=== PATIENT | female | born 1940 | race Caucasian/White ===

== ENCOUNTER 2021-07-01 10:00 | Emergency (ER) | payer MEDICARE, SELFPAY ==
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
[2021-07-01 10:30] VITALS: BP 152/74; PULSE 82; RESP 16; TEMP 37; O2SAT 100
== END 2021-07-01 10:42 | disposition home or self-care (01) ==
LOC: EXPTROY 10:16
PROVIDERS: Emergency Provider Nurse Practitioner
DX: S01.01XD Laceration without foreign body of scalp, subsequent encounter (principal); X58.XXXD Exposure to other specified factors, subsequent encounter
CPT/HCPCS: 99211; G0463

== ENCOUNTER 2022-10-19 11:21 | Outpatient (CLI) | payer OTHER, SELFPAY ==
[2022-10-19 12:20] LABS: INR 1.4; Prothrombin Time 16.9 Seconds (11.1-14.7)
[2022-10-19 12:21] LABS: Partial Thromboplastin Time 27.7 SECONDS (22.3-36.8)
[2022-10-19 12:24] LABS: Anion Gap 3 mmol/L (8-16); Blood Urea Nitrogen 42 mg/dL (7-17); Calcium 8.8 mg/dL (8.4-10.2); Carbon Dioxide 31 mmol/L (22-30); Chloride 103 mmol/L (98-107); Estimated Glomerular Filt Rate 25; Glucose 102 mg/dL (65-110); Potassium 4.9 mmol/L (3.4-5.0); Sodium 137 mmol/L (137-145)
== END 2022-10-19 11:22 | disposition home or self-care (01) ==
PROVIDERS: Anesthesiology; PCP Hospitalist; Visit Provider Dentist
DX: N19 Unspecified kidney failure (principal); Z01.818 Encounter for other preprocedural examination
CPT/HCPCS: 36415; 80048; 85610; 85730

== ENCOUNTER 2022-10-21 02:36 | Day surgery (SDC) | payer OTHER, SELFPAY ==
[2022-10-14 11:14] VITALS: BMI 24.8
--- NOTE | 2022-10-14 12:02 | PC.NURSE ---
PRE-OP INSTRUCTIONS, PLEASE READ CAREFULLY Report to the Outpatient Waiting Room, entrance under the green pavilion located off [facility], at time _0900_ on date _10/21/22_. Planned Procedure Time: _1100_. Time changes happen often and if your time is changed the preop area will call you the afternoon before. - You and your visitor will be asked to self-screen and do not enter if you have any COVID symptoms. - Only one visitor is requested with a max of two and NO children visitors are allowed at this time. - The patient visitor may be requested to leave or wait in car when not with patient due to distancing restrictions. - A mask is optional within the hospital at this time. Patients may have clear liquids (water, carbonated beverages, clear teas, apple juice) until 3 hours prior to surgery (0800 AM) with a maximum of 20 ounces. - No food from midnight until time of surgery Take the following medications with a SIP of water the morning of surgery: _AMLODIPINE, MULTAQ, ISOSORBIDE, METOPROLOL, & PAIN PILL, NITROGLYCERIN IF NEEDED_ DO NOT STOP ANY OF YOUR OTHER PRESCRIPTION MEDICATIONS PRIOR TO SURGERY ?EXCEPT THE FOLLOWING Medications to discontinue per DR. MATHUR - _PATIENT STATES INSTRUCTED TO STAY OF ASPIRIN & XARELTO_ Medications to discontinue per ANESTHESIA - _OCUVITE 3 DAYS PRIOR TO SURGERY, Date to take last dose 10/17/22_ Please no make-up, nail [facility]en[facility], hairspray, perfume, deodorant, or body powder the day of surgery. No jewelry (including any body piercings) or valuables the day of surgery, leave them at home. Please take a shower or bath the night before, or the morning of, surgery with an antibacterial soap. Wear comfortable, loose fitting clothing. - Jewelry must be removed prior to entering the operating room. Rings and piercings that are not removed may be cut off. - The hospital will not accept responsibility for valuables. - Please leave all valuables, including medications, at home the day of surgery. If you are going home after surgery, a licensed emergency vehicle driver must drive you home. - NO public transportation without another adult if you receive anesthesia. - We recommend that an adult stay with you for 24 hours following discharge. - We also recommend that you do not drive, make important decision, drink alcoholic beverages, or take any drugs that were not prescribed by your health care provider for at least 24 hours after your discharge time. Follow any additional instructions given to you from your surgeon. If you or anyone in your household have experienced Covid symptoms in the past week, please notify your surgeon or the nurse liaison at the phone number below for possible testing. Telephone instructions given to _PATIENT_and asked if any additional questions and then verbalized understanding. Patient advised to call surgeon office or pre surgery nurse liaison [phone] if any additional questions.
--- NOTE | 2022-10-21 08:13 | WPDANESEPPF ---
Anes - Initial Pre Proc Eval Procedure: Operation Date: 10/21/22 11:00 Proposed Procedures p Extraction of One Tooth #1 - Pablo Evans DMD Date/Time: 10/21/22 08:13 Surgeon: Pablo Evans DMD Pre Op Diagnosis: dental carries Patient Data Age: 82 Gender: F Height: 1.6 m Weight: 63.63 kg Allergies Allergy/AdvReac Type Severity Reaction Status Date / Time No Known Allergies Allergy Verified 10/21/22 10:49 Home Medications Medication Instructions Recorded Confirmed Type atorvastatin 20 mg tablet 20 mg PO DAILY 07/01/21 10/14/22 History dronedarone 400 mg tablet (Multaq) 400 mg PO BID 07/01/21 10/14/22 History metoprolol succinate 50 mg 50 mg PO DAILY 07/01/21 10/14/22 History tablet,extended release 24 hr nitroglycerin 0.4 mg sublingual 0.4 mg sublingual PRN PRN Chest 07/01/21 10/14/22 History tablet Pain omeprazole 20 mg capsule,delayed 20 mg PO DAILY 07/01/21 10/14/22 History release amlodipine 5 mg tablet 5 mg PO QAM 10/14/22 10/14/22 History aspirin 81 mg capsule 81 mg PO HS 10/14/22 10/14/22 History docusate sodium 100 mg capsule 240 mg PO DAILY 10/14/22 10/14/22 History (Colace) doxazosin 4 mg tablet (Cardura) 4 mg PO HS 10/14/22 10/14/22 History hydrocodone 10 mg-acetaminophen 1 tablet PO Q6H PRN Pain 10/14/22 10/14/22 History 325 mg tablet isosorbide mononitrate 30 mg 30 mg PO QAM 10/14/22 10/14/22 History tablet,extended release 24 hr magnesium oxide 400 mg PO QAM 10/14/22 10/14/22 History rivaroxaban 15 mg tablet 15 mg PO QPM 10/14/22 10/14/22 History valsartan 40 mg tablet 40 mg PO HS 10/14/22 10/14/22 History vitamin A-vitamin C-vit E-min 1 tablet PO DAILY 10/14/22 10/14/22 History tablet Patient hx anesthesia problems: none Family hx anesthesia problems: none Results Review: All pre-operative results and documents have been reviewed as part of the pre-operative evaluation. [facility] Past Medical History Medical History (Updated 10/21/22 @ 09:23 by Pablo Evans DMD) Atrial fibrillation CKD (chronic kidney disease) DVT (deep venous thrombosis) GERD (gastroesophageal reflux disease) Hyperlipidemia Hypertension Rheumatoid arthritis Surgical History Surgical History (Updated 10/21/22 @ 08:17 by Jean Snyder DO) History of femoropopliteal bypass Family History Family History (Updated 07/01/21 @ 10:12 by AIXA Montes) Other Family history non-contributory Social History Social History Smoking status: Never smoker Second hand tobacco smoke exposure: No Alcohol intake: never Substance use: never Substance use type: does not use Living arrangements: with family Spiritual care concerns: No Anes - Eval Final PreProcedure Day of Procedure 10/21/22 08:13 Patient weight: normal Heart: regular rate and rhythm Lungs: clear to auscultation and normal air movement Airway: Mallampati scale class II Neurological: alert and oriented Last oral intake: >/= 8 hours ASA classification: IV Emergent: no Anesthetic plan: proceed Anesthesia type and monitoring: general ETT and standard monitoring Results Review: All pre-operative results and documents have been reviewed as part of the pre-operative evaluation. Informed Consent: The patient's anesthetic plan and its attendant risks and benefits were discussed with the patient/family/POA. Questions were solicited and answers provided to the satisfaction of the patient/family/POA.
--- NOTE | 2022-10-21 09:22 | WPDHPUPDATE1 ---
History and Physical Update Update Date/Time: 10/21/22 09:22 History and Physical has been reviewed, including an updated exam of the patient. There are NO changes in the patient's condition. Risks, benefits, and alternatives have been discussed and questions answered. Patient agrees to proceed with procedure.
--- NOTE | 2022-10-21 09:22 | PM.IMHP ---
H&P: HPI History of Present Illness Date/Time: 10/21/22 09:22 Chief Complaint: bad tooth PMFSH Past Medical History Medical History (Updated 10/21/22 @ 09:23 by Pablo Evans DMD) Atrial fibrillation CKD (chronic kidney disease) DVT (deep venous thrombosis) GERD (gastroesophageal reflux disease) Hyperlipidemia Hypertension Rheumatoid arthritis Surgical History Surgical History (Updated 10/21/22 @ 08:17 by Jean Snyder DO) History of femoropopliteal bypass Family History Family History (Updated 07/01/21 @ 10:12 by AIXA Montes) Other Family history non-contributory Social History Social History Smoking status: Never smoker Second hand tobacco smoke exposure: No Alcohol intake: never Substance use: never Substance use type: does not use Living arrangements: with family Spiritual care concerns: No Meds Home Medications and Allergies Home Medications Medication Instructions Recorded Confirmed Type atorvastatin 20 mg tablet 20 mg PO DAILY 07/01/21 10/14/22 History dronedarone 400 mg tablet (Multaq) 400 mg PO BID 07/01/21 10/14/22 History metoprolol succinate 50 mg 50 mg PO DAILY 07/01/21 10/14/22 History tablet,extended release 24 hr nitroglycerin 0.4 mg sublingual 0.4 mg sublingual PRN PRN Chest 07/01/21 10/14/22 History tablet Pain omeprazole 20 mg capsule,delayed 20 mg PO DAILY 07/01/21 10/14/22 History release amlodipine 5 mg tablet 5 mg PO QAM 10/14/22 10/14/22 History aspirin 81 mg capsule 81 mg PO HS 10/14/22 10/14/22 History docusate sodium 100 mg capsule 240 mg PO DAILY 10/14/22 10/14/22 History (Colace) doxazosin 4 mg tablet (Cardura) 4 mg PO HS 10/14/22 10/14/22 History hydrocodone 10 mg-acetaminophen 1 tablet PO Q6H PRN Pain 10/14/22 10/14/22 History 325 mg tablet isosorbide mononitrate 30 mg 30 mg PO QAM 10/14/22 10/14/22 History tablet,extended release 24 hr magnesium oxide 400 mg PO QAM 10/14/22 10/14/22 History rivaroxaban 15 mg tablet 15 mg PO QPM 10/14/22 10/14/22 History valsartan 40 mg tablet 40 mg PO HS 10/14/22 10/14/22 History vitamin A-vitamin C-vit E-min 1 tablet PO DAILY 10/14/22 10/14/22 History tablet Allergies Allergy/AdvReac Type Severity Reaction Status Date / Time No Known Allergies Allergy Verified 10/14/22 11:02 Assessment and Plan Assessment and plan (1) Non-restorable tooth: Code(s): K08.89 - Other specified disorders of teeth and supporting structures Status: Acute Assessment and Plan: ext #1
[2022-10-21] MEDS: LACTATED RINGERS 1,000 ML 30 ML IV CONT (10:30)
[2022-10-21 10:45] VITALS: BP 118/53; PULSE 72; RESP 16; TEMP 36.4; O2SAT 95
[2022-10-21 10:49] LABS: INR 1.5; Partial Thromboplastin Time 27.5 SECONDS (22.3-36.8); Prothrombin Time 17.3 Seconds (11.1-14.7)
--- NOTE | 2022-10-21 10:58 | SUR.PREOP ---
PT KAREEN AWARE OF PT/INR RESULTS DONE TODAY. NNO
[2022-10-21] MEDS: ceFAZolin 2 GM/D5W 50 ML 2 GM/50 ML BAG IVPB (11:44)
[2022-10-21] MEDS: LIDOCAINE 2%-EPI (FOR DENTAL BLOCK) 1.7 ML CARTRIDGE INFILTRATE (11:47)
--- NOTE | 2022-10-21 11:57 | W.PM.PROC2 ---
Procedure Note - Detailed Date of Procedure 10/21/22 Pre-op Diagnosis dental carries Post-op Diagnosis Same Procedure Performed sr #1 Surgeon Pablo Evans, AMANDA Anesthesia General Description of Procedure Patient encountered in the operating room the anesthesia service who induced general anesthetic. Patient was draped in usual manner for intraoral surgical procedure. Oral cavity suctioned free of debris and throat pack placed. Local anesthetic administered a 15 blade was used to make a distal releasing incision area of tooth 1. Buccal flap was elevated and tooth 1. Was removed using elevator and rongeur. Secured. Pre irrigated copious amount sterile saline. Site was packed with Gelfoam and closed using 4-0 chromic gut suture in interrupted fashion. The cavity suctioned free of debris and throat pack removed. Care the patient returned the ICU service who transferred to recovery in stable condition. Estimated blood loss minimal anesthesia 1cc of 2% lidocaine with 1000 epinephrine no complications
[2022-10-21 12:01] VITALS: BP 116/54; PULSE 70; RESP 16; O2SAT 90
[2022-10-21 12:35] VITALS: BP 111/56; PULSE 63; RESP 16; O2SAT 94
[2022-10-21 13:05] VITALS: BP 117/67; PULSE 63; RESP 16
== END 2022-10-21 13:22 | disposition home or self-care (01) ==
PROVIDERS: Anesthesiology; PCP Hospitalist; Visit Provider Dentist
PROC: (CPT 41899; principal; 2022-10-21 11:00)
DX: K02.9 Dental caries, unspecified (principal); I48.91 Unspecified atrial fibrillation; I12.9 Hypertensive chronic kidney disease with stage 1 through stage 4 chronic kidney disease, or unspecified chronic kidney disease; N18.9 Chronic kidney disease, unspecified; E78.5 Hyperlipidemia, unspecified; M06.9 Rheumatoid arthritis, unspecified; K21.9 Gastro-esophageal reflux disease without esophagitis; Z79.01 Long term (current) use of anticoagulants; Z79.82 Long term (current) use of aspirin
CPT/HCPCS: D7240; 36415; 85610; 85730; J0690; J1100; J2405; J2704; J7120